=== PATIENT | female | born 1995 | race Caucasian/White ===

== ENCOUNTER → 2021-11-30 | Emergency (ER) | payer OTHER ==
[~2021-11-30] VITALS: Ht 157.5 cm; Wt 78.0 kg
[~2021-11-30] MED LIST: PRENA1 TRUE CO1 EACH PO
== END | disposition left against medical advice (07) ==
LOC: ER 09:59
DX: B34.9 Viral infection, unspecified (principal); Z20.822 Contact with and (suspected) exposure to COVID-19

== ENCOUNTER → 2024-08-16 | Emergency (ER) | payer OTHER ==
[~2024-08-16] VITALS: Ht 157.5 cm; Wt 79.4 kg
[~2024-08-16] MED LIST changes: +0.9 % SODIUM CHLORIDE 1,000 ML IV STA
== END | disposition left against medical advice (07) ==
LOC: ER 22:40
DX: O20.8 Other hemorrhage in early pregnancy (principal); Z3A.09 9 weeks gestation of pregnancy

== ENCOUNTER 2024-09-19 08:26 | Emergency (ER) | payer OTHER ==
[~2024-09-19] VITALS: Ht 154.9 cm; Wt 77.1 kg
[~2024-09-19 08:26] MED LIST changes: -0.9 % SODIUM CHLORIDE 1,000 ML IV STA
[2024-09-19] MEDS ORDERED: ADULT LOW DOSE81 M1 PO (08:29)
[2024-09-19] MEDS ORDERED: 0.9 % SODIUM CHLORIDE 1,000 ML IV ONE (08:45)
[2024-09-19 09:09] LABS: HEMATOCRIT 36.5 % (36.0-45.00); HEMOGLOBIN 11.7 g/dL (12.0-15.00); MEAN CELL VOLUME 80.3 fL (80.00-100.00); MEAN CORPUSCULAR HEMOGLOBIN 25.7 pg (27.00-32.0); PLATELET COUNT 249 K/uL (150-450); RED BLOOD COUNT 4.54 M/uL (4.00-6.00); RED CELL DISTRIBUTION WIDTH 15.1 % (11.5-14.5)
[2024-09-19 10:02] LABS: ALBUMIN 2.8 gm/dL (3.4-5.0); BILIRUBIN TOTAL 0.22 mg/dL (0.3-1.2); CALCIUM 8.7 mg/dL (8.5-10.1); CREATININE SERUM 0.43 mg/dL (0.55-1.02); GFR 176.14; GLOBULINA 4.2 G/DL (2.4-3.5); POTASSIUM 3.55 mEq/L (3.5-5.1)
[2024-09-19 13:21] LABS: URINE APPEARANCE Cloudy; URINE BILIRRUBIN Negative (NEGATIVE); URINE BLOOD Negative; URINE COLOR Yellow; URINE GLUCOSE Negative (NEGATIVE); URINE KETONE Negative (NEGATIVE); URINE LEUKOCYTE Negative; URINE NITRATE Negative; URINE PROTEIN Negative (NEGATIVE)
[2024-09-19 13:24] LABS: URINE BACTERIA 58.7 uL (0.0-1933); URINE EPITHELIAL CELLS 5.2 uL (0.0-38.8); URINE WBC 4.2 uL (0.0-23.2)
== END 2024-09-19 14:01 | disposition home or self-care (01) ==
LOC: ER 08:26
PROVIDERS: General Practice
DX: Z34.90 Encounter for supervision of normal pregnancy, unspecified, unspecified trimester (principal); Z3A.16 16 weeks gestation of pregnancy; R42 Dizziness and giddiness; R55 Syncope and collapse; H53.8 Other visual disturbances; I10 Essential (primary) hypertension; Z91.013 Allergy to seafood

== ENCOUNTER 2024-10-31 13:03 | Outpatient (CLI) | payer OTHER ==
[~2024-10-31 13:03] MED LIST changes: +ADULT LOW DOSE81 M1 PO
== END 2024-10-31 13:07 | disposition home or self-care (01) ==
LOC: PRENATAL 13:03
PROVIDERS: ATTEND Obstetrics & Gynecology Maternal & Fetal Medicine
DX: O44.00 Complete placenta previa NOS or without hemorrhage, unspecified trimester (principal); Z3A.20 20 weeks gestation of pregnancy

== ENCOUNTER → 2024-12-27 12:44 | Outpatient (CLI) | payer OTHER | END | disposition home or self-care (01) | LOC: PRENATAL 12:44 | PROVIDERS: ATTEND Obstetrics & Gynecology Maternal & Fetal Medicine | DX: O26.849 Uterine size-date discrepancy, unspecified trimester (principal); O36.8199 Decreased fetal movements, unspecified trimester, other fetus; O44.00 Complete placenta previa NOS or without hemorrhage, unspecified trimester; Z3A.29 29 weeks gestation of pregnancy ==

== ENCOUNTER 2025-03-13 23:28 | Emergency (ER) | payer OTHER ==
[~2025-03-13] VITALS: Ht 154.9 cm; Wt 74.4 kg
[2025-03-14] MEDS ORDERED: HYOSCYAMINE SULFATE 0.125 MG TAB.SUBL SL STA (00:49)
[2025-03-14] MEDS ORDERED: PROMETHAZINE HCL 50 MG/ML AMPUL IM STA (00:49)
[2025-03-14] MEDS ORDERED: FAMOTIDINE/PF 20 MG/2 ML VIAL IV PUSH STA (00:50)
[2025-03-14] MEDS ORDERED: LACTOBACILLUS ACIDOPHILUS 1 CAP CAP PO STA (00:50)
[2025-03-14] MEDS ORDERED: PROMETHAZINE HCL 50 MG/ML AMPUL IM ONE (00:58)
[2025-03-14] MEDS ORDERED: HYOSCYAMINE SULFATE 0.125 MG TAB.SUBL ONE (00:59)
[2025-03-14] MEDS ORDERED: FAMOTIDINE/PF 20 MG/2 ML VIAL ONE (00:59)
[2025-03-14] MEDS ORDERED: LACTOBACILLUS ACIDOPHILUS 1 CAP CAP PO ONE (00:59)
[2025-03-14] MEDS ORDERED: 0.9 % SODIUM CHLORIDE 1,000 ML IV ONE (01:00)
[2025-03-14 01:31] LABS: BASO % 0.2 % (0.1-1.2); EOS # 0.08 (0.04-0.54); EOS % 0.9 % (0.7-7.0); LYMPH # 2.45 (1.18-3.74); LYMPH % 26.5 % (19.3-53.1); MEAN PLATELET VOLUME 10.80 fl (9.4-12.4); MONO # 0.64 (0.24-0.82); MONO % 6.9 % (4.7-12.5); NEUT # 6.02 (1.56-6.13); NEUT % 65.3 % (34.0-71.1); RED CELL DISTRIBUTION WIDTH 15.3 % (11.6-14.4)
[2025-03-14 02:28] LABS: BUN CREA RATIO 14.0 (7.0-25.0); CREATININE SERUM 0.65 mg/dL (0.55-1.02); GFR 109.34; GLUCOSE FASTING 93.0 mg/dL (65-100); OSMOLALITY SERUM 281.0 MOSM/KG (275-295)
[2025-03-14] MEDS ORDERED: ZOFRAN8 MG PO (05:18)
[2025-03-14] MEDS ORDERED: PEPCID40 MG PO (05:18)
== END 2025-03-14 05:34 ==
LOC: ER 23:28
PROVIDERS: General Practice
DX: K52.89 Other specified noninfective gastroenteritis and colitis (principal); Z91.013 Allergy to seafood